=== PATIENT | female | born 1950 | race Caucasian/White ===

== ENCOUNTER 2019-02-16 13:04 | Outpatient (CLI) | payer MEDICARE, OTHER ==
[2019-04-27] MEDS ORDERED: LEVO50TA5 PO (15:42)
[2019-04-27] MEDS ORDERED: BUSPIRONE PO (15:42)
[2019-04-27] MEDS ORDERED: ATOR10TA9 PO (15:42)
[2019-04-27] MEDS ORDERED: BUSP15TA PO (15:42)
[2019-04-27] MEDS ORDERED: AZEL137S4 NAS (15:42)
== END 2019-02-16 23:59 | disposition home or self-care (01) ==
LOC: CFH 13:04
DX: R92.2 Inconclusive mammogram (principal)
CPT/HCPCS: 76642; 77065